=== PATIENT | female | born 1955 ===

== ENCOUNTER 2019-03-14 09:13 | Emergency (ER) | payer SELFPAY ==
[2019-03-14 09:33] VITALS: BP 153/105
[2019-03-14] MEDS ORDERED: Ketorolac INJ* 30 MG/ML 1 ML VIAL IM ONE (10:31)
[2019-03-14] MEDS ORDERED: Cyclobenzaprine TAB* 10 MG PO ONE (10:32)
--- NOTE | 2019-03-14 11:01 | UC ---
Back Pain HPI - HPI Summary HPI Summary: 7-year-old female presents with 2 day history of right lower back pain that radiates down the back of her right leg to the level of her knee. Describes the pain as a sharp shooting pain. Worsens with any movement or walking. States she has had problems with sciatica in the past and that this feels very similar to her previous episodes. She has not taken anything for pain. Denies fever, chills, abdominal pain, nausea, vomiting, dysuria, frequency, urgency, hematuria, numbness, tingling, weakness, loss of bowel or bladder control. - History of Current Complaint Chief Complaint: UCBackPain Stated Complaint: BACK PAIN Time Seen by Provider: 03/14/19 10:26 Hx Obtained From: Patient Pain Intensity: 8 - Allergies/Home Medications Allergies/Adverse Reactions: Allergies Allergy/AdvReac Type Severity Reaction Status Date / Time No Known Allergies Allergy Verified 03/14/19 09:33 PMH/Surg Hx/FS Hx/Imm Hx - Surgical History Surgical History: None - Social History Alcohol Use: None Substance Use Type: None Smoking Status (MU): Heavy Every Day Tobacco Smoker Review of Systems All Other Systems Reviewed And Are Negative: Yes Constitutional: Negative: Fever, Chills Skin: Negative: Rash Respiratory: Negative: Shortness Of Breath, Cough Cardiovascular: Negative: Palpitations, Chest Pain Gastrointestinal: Negative: Abdominal Pain, Vomiting, Diarrhea, Nausea Genitourinary: Negative: Dysuria, Hematuria, Frequency, Urgency Motor: Negative: Weakness Neurovascular: Negative: Decreased Sensation Musculoskeletal: Positive: Other: - See HPI Neurological: Positive: Negative Is Patient Immunocompromised?: No Physical Exam - Summary Physical Exam Summary: GENERAL APPEARANCE: Well developed, well nourished, alert and cooperative, and appears to be in no acute distress. CARDIAC: Normal S1 and S2. No S3, S4 or murmurs. Rhythm is regular. There is no peripheral edema, cyanosis or pallor. Extremities are warm and well perfused. Capillary refill is less than 2 seconds. Peripheral pulses intact. LUNGS: Clear to auscultation without rales, rhonchi, wheezing or diminished breath sounds. ABDOMEN: Positive bowel sounds. Soft, nondistended, nontender. No guarding or rebound. No masses or hepatosplenomegally. MUSKULOSKELETAL: ROM intact to all extremities. No joint erythema or tenderness. Normal muscular development. Normal gait. BACK: Examination of the spine reveals normal posture, no midline spinal deformity or tenderness. Paraspinous soft tissue tenderness to right lumbar back without muscular spasm. SKIN: Skin normal color, texture and turgor with no lesions or eruptions. Triage Information Reviewed: Yes Vital Signs: Initial Vital Signs Temp 98.5 F 03/14/19 09:29 Pulse 102 03/14/19 09:29 Resp 20 03/14/19 09:29 BP 153/105 03/14/19 09:29 Pulse Ox 99 03/14/19 09:29 Vital Signs Reviewed: Yes Back Pain Course/Dx - Course Course Of Treatment: 7-year-old female presents with 2 day history of right lower back pain that radiates down the back of her right leg to the level of her knee. Describes the pain as a sharp shooting pain. Worsens with any movement or walking. States she has had problems with sciatica in the past and that this feels very similar to her previous episodes. She has not taken anything for pain. Denies fever, chills, abdominal pain, nausea, vomiting, dysuria, frequency, urgency, hematuria, numbness, tingling, weakness, loss of bowel or bladder control. Afebrile. Hypertensive otherwise vital signs stable. Exam remarkable for right paraspinal soft tissue tenderness. Lower extremity strength and sensation intact bilaterally. Patient was given a dose ketorolac 30 mg IM and cyclobenzaprine 10 mg by mouth for her pain. I'm recommending conservative treatment for low back pain with sciatica including naproxen 500 mg twice a day 5 days then every 12 hours as needed, cyclobenzaprine 10 mg 1 tablet every 8 hours as needed for severe pain or spasm, and heat therapy. She was provided with a prescription for physical therapy for evaluation and treatment. She is to return here or follow up with her primary care provider in 7 days if symptoms do not improve. Anticipatory guidance and warning symptoms are reviewed with the patient. Verbalizes understanding and agrees with plan of care. - Differential Dx/Diagnosis Differential Diagnosis/HQI/PQRI: Herniated Disc, Strain, Other - Sciatica Provider Diagnosis: Sciatica of right side Discharge - Sign-Out/Discharge Documenting (check all that apply): Patient Departure All imaging exams completed and their final reports reviewed: No Studies - Discharge Plan Condition: Stable Disposition: HOME Prescriptions: Cyclobenzaprine TAB* [Flexeril 10 MG TAB*] 10 mg PO TID PRN #15 tab PRN Reason: Spasms - Back Naproxen Sodium [Naproxen Sodium 500 MG TAB] 500 mg PO BID #30 tab Patient Education Materials: Sciatica (ED) Referrals: No Primary Care Phys,NOPCP [Primary Care Provider] - Additional Instructions: Your history and exam are consistent with low back pain with sciatica. You were given an injection of an anti-inflammatory pain medication called ketoralac (Toradol) in the clinic. You should not take any other anti- inflammatory medications such as ibuprofen (Advil, Motrin), naproxen (Aleve), or aspirin for at least 8 hours after receiving this medication. You were given the injection at 10:40 am. Take naproxen 500 mg 1 tab every 12 hours with food for the next 5 days then may take every 12 hours as needed for pain. You may start taking this at 7:40 pm tonight. Take cyclobenzaprine (Flexeril) 10 mg 1 tab every 8 hours as needed for severe pain or spasm. You were given a dose in the clinic at 10:40 am. This medication will cause drowsiness so do not drive or operate machinery while taking. I have given you an order for physical therapy that you may take to a physical therapist of your choice for evaluation and treatment. Return here or follow up with your primary care provider in 7 days if symptoms persist. Your blood pressure was elevated in the clinic today. It is recommended that you have this rechecked by your primary care provider within 4 weeks. Seek immediate medical attention in the emergency room if you develop fever greater than 100.5 F, have worsening pain, weakness, numbness, or tingling in the leg, you lose bowel or bladder control, or any worsening of symptoms. - Billing Disposition and Condition Condition: STABLE Disposition: Home - Attestation Statements Provider Attestation: Per institutional requirements, I have reviewed the chart, however, I was not consulted specifically or made aware of this patient by the midlevel provider. I did not personally evaluate, interact with , or disposition this patient.
== END 2019-03-14 11:13 | disposition home or self-care (01) ==
LOC: UCEAST 09:13
DX: M54.41 Lumbago with sciatica, right side (principal); R03.0 Elevated blood-pressure reading, without diagnosis of hypertension; F17.200 Nicotine dependence, unspecified, uncomplicated
CPT/HCPCS: 96372; 99202; A9270-GY; G0463; J1885